=== PATIENT | female | born 2000 | race American Indian/Alaskan Native ===

== ENCOUNTER 2021-07-26 18:21 | Emergency (ER) | payer SELFPAY ==
[2021-07-26 18:31] VITALS: BP 125/71
[2021-07-26] MEDS ORDERED: ACETAMINOPHEN 500 MG TAB PO ONE (19:24)
[2021-07-26] MEDS ORDERED: IBUPROFEN 600 MG TAB PO ONE (19:24)
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
== END 2021-07-26 20:50 | disposition home or self-care (01) ==
LOC: ED 18:21
DX: S20.219A Contusion of unspecified front wall of thorax, initial encounter (principal); M94.0 Chondrocostal junction syndrome [Tietze]; Z88.0 Allergy status to penicillin; Z91.038 Other insect allergy status; Y08.89XA Assault by other specified means, initial encounter; Y93.89 Activity, other specified; Y92.89 Other specified places as the place of occurrence of the external cause; Y99.8 Other external cause status
CPT/HCPCS: 71046; 99283

== ENCOUNTER 2021-08-28 12:56 | Emergency (ER) | payer SELFPAY ==
--- NOTE | 2021-08-28 13:47 | Emergency Department Report ---
ED Female HPI - General Chief complaint: Abdominal Pain Stated complaint: ABD CRAMPS Time Seen by Provider: 08/28/21 13:36 Source: patient Mode of arrival: Ambulatory Limitations: No Limitations - History of Present Illness Initial comments: 21-year-old female with no significant past medical history presents to the hospital complaining of heavy vaginal bleeding for the last 2 days. LMP was mid July with menses typically starting around the 15th of every month. This menstrual cycle is different because the cramping is more severe and she is having heavier bleeding. Cramps are intermittent without aggravating or alleviating factors. Take [id number] Midol without relief. she is used 3 pads since this a.m. She denies lightheadedness, dyspnea on exertion, fatigue, or generalized weakness. She took a negative test 1 week ago. She has never been before. She denies urinary symptoms. Patient wants to feel better before going to [facility] tomorrow. MD Complaint: vaginal bleeding - Related Data Home Medications Medication Instructions Recorded Confirmed Last Taken No Known Home Medications [No 08/28/21 08/28/21 Unknown Reported Home Medications] Allergies Allergy/AdvReac Type Severity Reaction Status Date / Time Penicillins Allergy Unknown Verified 08/28/21 13:11 insect bite Allergy Swelling Uncoded 04/29/16 16:10 ED Review of Systems ROS: Stated complaint: ABD CRAMPS Other details as noted in HPI Comment: All other systems reviewed and negative ED Past Medical Hx - Past Medical History Previous Medical History?: No - Surgical History Past Surgical History?: No - Social History Smoking Status: Never Smoker Substance Use Type: None - Medications Home Medications: Home Medications Medication Instructions Recorded Confirmed Last Taken Type No Known Home Medications [No 08/28/21 08/28/21 Unknown History Reported Home Medications] ED Physical Exam - General Limitations: No Limitations - Other Other exam information: General: No acute distress Head: Atraumatic Eyes: normal appearance ENT: Moist mucous membranes Neck: Normal appearance, no midline tenderness Chest: Clear to auscultation bilaterally CV: Regular rate and rhythm Abdomen: Soft, normal bowel sounds, nontender, nondistended, no rebound or guarding Back: Normal inspection Extremity: Normal inspection, full range of motion Neuro: Alert O x 3, no facial asymmetry, speech clear, no gross motor sensory deficit Psych: Appropriate behavior Skin: No rash ED Course Vital Signs 08/28/21 08/28/21 08/28/21 12:56 14:06 14:08 Temperature 98.2 F 98.5 F 98.2 F Pulse Rate 83 75 73 Respiratory 16 14 14 Rate Blood Pressure 111/69 Blood Pressure 120/91 121/69 [Right] O2 Sat by Pulse 98 99 99 Oximetry ED Medical Decision Making - Lab Data Lab Results 08/28/21 Range/Units 13:54 Urine HCG, Qual Negative (Negative) - Medical Decision Making refused cbc but has not sx of anemia with normal vitals. Patient did not want any needle sticks therefore urine test ordered pt eloped prior to pregancy result Critical Care Time: No Critical care attestation.: If time is entered above; I have spent that time in minutes in the direct care of this critically ill patient, excluding procedure time. ED Disposition Clinical Impression: Vaginal bleeding Disposition: 07 LEFT AWOL/ELOPED Is pt being admited?: No Condition: Stable Instructions: Abdominal Pain (ED) Referrals: PRIMARY CARE [Primary Care Provider] - 3-5 Days Time of Disposition: 14:43
[2021-08-28 14:09] VITALS: BP 111/69
[2021-08-28 15:08] LABS: HCG Qualitative,Urine Negative (Negative)
== END 2021-08-28 15:12 | disposition left against medical advice (07) ==
LOC: ED 12:56
DX: N93.9 Abnormal uterine and vaginal bleeding, unspecified (principal); Z88.0 Allergy status to penicillin; Z91.038 Other insect allergy status
CPT/HCPCS: 81025; 99283